=== PATIENT | male | born 1970 | race Caucasian/White ===

== ENCOUNTER 2018-11-06 12:14 | Emergency (ER) | payer SELFPAY ==
[~2018-11-06] VITALS: Ht 170.2 cm; Wt 89.4 kg
[2018-11-06 12:24] VITALS: BP 157/99; Ht 170.2 cm; Wt 89.4 kg
== END 2018-11-06 13:49 | disposition home or self-care (01) ==
LOC: ED 12:14
DX: K12.1 Other forms of stomatitis (principal); R58 Hemorrhage, not elsewhere classified

== ENCOUNTER 2018-11-06 14:48 | Emergency (ER) | payer SELFPAY ==
[~2018-11-06] VITALS: Ht 170.2 cm; Wt 89.4 kg
[2018-11-06 15:03] VITALS: BP 128/99
== END 2018-11-06 17:53 | disposition home or self-care (01) ==
LOC: ED 14:48
DX: K12.1 Other forms of stomatitis (principal); R58 Hemorrhage, not elsewhere classified